=== PATIENT | male | born 1995 | race Caucasian/White ===

== ENCOUNTER 2024-12-29 12:42 | Emergency (ER) | payer MEDICAID, SELFPAY ==
[2024-12-29 13:55] VITALS: BP 134/62; PULSE 75; RESP 18; TEMP 36.8; O2SAT 100; BMI 24.0
--- NOTE | 2024-12-29 14:00 | XR_ITS ---
FINAL REPORT CLINICAL HISTORY: INJURY, punch wall 5 days ago. pain and swelling FINDINGS: LEFT HAND Three views demonstrate a displaced, angulated fracture of the mid fifth metacarpal. There is volar angulation of the distal fracture fragment. There is full width displacement. Prominent soft tissue swelling is noted. IMPRESSION: Fracture of the mid fifth metacarpal as above. Reviewed, Interpreted and Dictated by Gustavo Ching MD Transcribed by Niki Graves Authenticated and [facility]
[2024-12-29 15:00] VITALS: BP 123/84; PULSE 76; O2SAT 97
[2024-12-29] MEDS: LIDOCAINE 2% 20ML VIAL 20 ML IJ (15:06)
--- NOTE | 2024-12-29 15:20 | XR_ITS ---
FINAL REPORT TECHNIQUE: 4 views left hand CLINICAL HISTORY: post reduction COMPARISON: Earlier exam from 12/29/2024 FINDINGS: LEFT HAND: Since the prior exam of 12/29/2024 a splint has been placed over the left wrist and hand. There has been partial reduction of the fifth metacarpal fracture, with slight decrease in the angulation of the fracture fragments. However dorsal displacement of the distal fracture fragment remains present, with the displacement being a full shaft width. IMPRESSION: Partial reduction of the fifth metacarpal fracture, however, there remains dorsal displacement of the distal fracture fragment although the angulation has slightly decreased since the prior exam. Reviewed, Interpreted and Dictated by Gustavo Ching MD Transcribed by Belle Contreras Authenticated and [facility]
[2024-12-29 15:55] VITALS: BP 123/84; PULSE 76; RESP 12; TEMP 36.8; O2SAT 97
--- NOTE | 2024-12-29 15:56 | ED_ITS ---
Discharge Plan Disposition Patient Disposition: Home, Self-Care Condition: Good Prescriptions Prescriptions: New hydrocodone-acetaminophen 5-325 mg tablet 1 tab PO Q8H PRN (Reason: pain) Qty: 10 0RF No Action sertraline 50 mg tablet 50 mg PO DAILY Patient Comments: TAKE 1 TABLET EVERY DAY BY ORAL ROUTE IN THE MORNING FOR 30 DAYS, FOR MOOD. Referrals Follow up/Referrals: Papito Lucas DO [Staff Physician] - See instructions Provider,Referral, [Primary Care Provider] - See instructions Activity Restrictions/Add. Instructions Additional Instructions/Restrictions: You were evaluated in the emergency department today. You were diagnosed with a fracture of your left hand. Please keep the splint on, clean, and dry. Do not put weight on it your hand or carry anything with this hand. Follow-up closely with orthopedics for reassessment. We have provided you with information for Dr. Lucas. You will need to contact his office to schedule an appointment. I have prescribed Saffell for you to take as needed for severe pain. Try to give out with just Tylenol and ibuprofen, as Saffell is addicting and sedating. Do not drive or operate heavy machinery while taking narcotic pain medication. Rest, ice, and elevate your hand to help reduce pain and swelling. Sleep with it up on top of the pillow. Return to the emergency department for new or worsening symptoms, such as significant worsening of pain, new numbness or tingling, or other concerns. You received a nerve block today in the emergency department. It will take a while before your feeling in your hand returns completely to normal. Clinical Impressions Clinical Impression: Fracture of fifth metacarpal bone Qualifiers: Encounter type: initial encounter Fracture type: closed Metacarpal location: shaft Fracture alignment: displaced Laterality: left Qualified Code(s): S62.327A - Displaced fracture of shaft of fifth metacarpal bone, left hand, initial encounter for closed fracture Stand Alone Forms Stand Alone Forms: Work/School Release Instructions Patient Instructions: DI for a Hand Fracture, How to Take Care of Your Splint Print Language Print Language: Hungarian Discharge ED Provider: Lucia Khan General Adult HPI <Lucia Khan DO - Last Filed: 12/29/24 16:03> General Chief complaint: PAIN Stated complaint: L Hand Pain/Swelling Time Seen by Provider: 12/29/24 13:51 Mode of Arrival: Ambulatory Source of Information: Patient Description of Symptoms (Recalled from ER Triage Doc. by RN): PT REPORTS LEFT HAND PAIN AFTER PUNCHING A WALL ABOUT 5 DAYS AGO. SWEELING AND BRUISING NOTED History of Present Illness HPI narrative: This patient is a 29-year-old [id number] male who denies significant past medical history presenting to the emergency department for evaluation with concern for left hand injury. He notes that he was intoxicated and punched a wall, injuring his left hand. He states it was not bothering him much until last night, when he could not sleep secondary to pain. No other concerns or complaints, no numbness or tingling. Related Data Home Medications ?Medication ?Instructions ?Recorded ?Confirmed sertraline 50 mg tablet 50 mg PO DAILY 12/29/24 12/29/24 Previous Rx's ?Medication ?Instructions ?Recorded hydrocodone 5 mg-acetaminophen 325 1 tab PO Q8H PRN pain #10 tabs 12/29/24 mg tablet Allergies Allergy/AdvReac Type Severity Reaction Status Date / Time No Known Allergies Allergy Verified 12/29/24 13:59 [facility] <Lucia Khan DO - Last Filed: 12/29/24 16:03> [facility] Disclaimer: The information contained in this section may have been updated after the patient was seen, as this information can be updated by other users. Social History (Updated 12/29/24 @ 16:03 by Lucia Khan DO) Smoking Status: Never smoker alcohol intake: current current occupational status: employed and unemployed Travel in the last 8 weeks: None Have you lived/traveled outside [place] in past 30 days?: No Contact w/someone who lives/traveled outside US past 30 days?: No Exposure to someone with infectious disease in past 14 days?: No Do you have a fever (greater than 100.4 F or 38 C)?: No Have you tested positive for COVID-19: No Exposed to someone with COVID-19 in past 14 days?: No Do you have a sore throat?: No Do you have a cough?: No Do you have any weakness?: No Do you have any diarrhea?: No Are you experiencing any unusual bleeding?: No Do you have any muscle aches/pain?: No Do you have any abdominal pain?: No Are you experiencing loss of taste or smell?: No <Lucia Khan DO - Last Filed: 12/29/24 16:03> ROS Obtained: Yes All systems reviewed & no additional complaints except as documented Physical Exam <Lucia KhanDO - Last Filed: 12/29/24 16:03> General General appearance: alert and in no apparent distress Head Head exam: atraumatic and normocephalic Eye Eye exam: Present normal appearance, PERRL and EOMI ENT ENT exam: Present normal exam, normal oropharynx, mucous membranes moist and normal external ear exam Neck Neck exam: Present normal inspection, full ROM and trachea midline; Absent tenderness Chest Chest inspection: Present normal inspection and symmetric chest wall rise; Absent tenderness Respiratory Respiratory exam: Present normal lung sounds bilaterally; Absent respiratory distress, wheezes, stridor or accessory muscle use Cardiovascular Cardiovascular exam: Present regular rate and normal rhythm Abdominal Exam Abdominal exam: Present soft; Absent distention, tenderness or guarding Extremities Exam Extremities exam: Present tenderness, normal capillary refill, joint swelling and other (Swelling and tenderness to palpation to the ulnar aspect of the left hand. Neurovascularly intact distally) Back Exam Back exam: Present normal inspection and full ROM; Absent tenderness Neurological Exam Neurological exam: Present alert, oriented X3, CN II-XII intact and normal gait; Absent motor sensory deficit Psychiatric Psychiatric exam: Present normal affect and normal mood Skin Skin exam: Present warm and dry Medical Decision Making <Lucia SotoDO darya - Last Filed: 12/29/24 16:03> Medical Records Medical records reviewed: Yes I reviewed the patient's medical records. Screening: Per USPSTF and CDC recommendations, given the prevalence of disease in our region, it is our hospital?s policy to screen for HIV and viral Hepatitis for all patients aged 18 and over and those with ongoing risk factors. Timothy Inquiry Pt receiving controlled substance: Yes Timothy was queried for this patient: Yes Risks and benefits of using a controlled substance: were discussed with pt by me Vital Signs: 12/29/24 13:55 12/29/24 15:00 12/29/24 15:55 Temperature 98.2 F 98.2 F Temperature Source Oral Pulse Rate 76 76 Pulse Rate [Radial] 75 Respiratory Rate 18 12 Blood Pressure 123/84 123/84 Blood Pressure [Left Arm] 134/62 Blood Pressure Mean [Left Arm] 86 Blood Pressure Source [Left Arm] Automatic Cuff Blood Pressure Position [Left Arm] Sitting 02 Sat by Pulse Oximetry 100 97 Oxygen Delivery Method Room Air Room Air Lab Data Lab results reviewed: Yes I reviewed the patient's lab results. Orders (Tests/Meds): ED MEDICATIONS Discontinued Medications Generic Name Dose Route Start Last Admin Trade Name Karoline PRN Reason Stop Dose Admin Lidocaine HCl 20 ml 12/29/24 15:03 12/29/24 15:06 Lidocaine 2% 20ml Vial IJ 12/29/24 15:04 20 ml ONCE ONE Administration ORDERS Category Date Time Status Hand XR left minimum 3 views [XR hand LT min 3V] Stat Exams 12/29/24 14:00 Completed Hand XR left minimum 3 views [XR hand LT min 3V] Stat Exams 12/29/24 15:20 Taken POCUS Point of Care (ER Only) Stat Exams 12/29/24 15:08 Completed Medical Decision Narrative: In summary, this patient is a 29-year-old [id number] male presenting to the Emergency Department for evaluation of left hand injury. Differential diagnoses considered include but are not limited to fracture, contusion, strain/sprain, neurovascular injury. Ruling out the most morbid conditions drove assessment. On exam, the patient is well-appearing. He has tenderness palpation and swelling of the ulnar aspect of the left hand with no wounds, he is neurovascularly intact distally. Workup included x-rays of the left hand. I independently interpreted x-ray prior to the radiologist read and noted significant displaced fracture of the left fifth metacarpal. Please see their read for final interpretation. Informed consent was obtained from the patient and patient underwent ulnar nerve block and reduction of the fracture by Dr. Ramin Messer. Please see his note for further documentation. I performed splinting after reduction. Patient remained neurovascularly intact after splinting. He had improvement of alignment of the fracture on my independent interpretation of postreduction x-ray, and I feel that he is appropriate for discharge home with very close follow-up on an outpatient basis with orthopedics. He was given strict return precautions and instructions for splint care and nonweightbearing status. He was discharged after all questions were answered <Ramin Messer MD - Last Filed: 12/29/24 16:29> Vital Signs: 12/29/24 13:55 12/29/24 15:00 12/29/24 15:55 Temperature 98.2 F 98.2 F Temperature Source Oral Pulse Rate 76 76 Pulse Rate [Radial] 75 Respiratory Rate 18 12 Blood Pressure 123/84 123/84 Blood Pressure [Left Arm] 134/62 Blood Pressure Mean [Left Arm] 86 Blood Pressure Source [Left Arm] Automatic Cuff Blood Pressure Position [Left Arm] Sitting 02 Sat by Pulse Oximetry 100 97 Oxygen Delivery Method Room Air Room Air Orders (Tests/Meds): ED MEDICATIONS Discontinued Medications Generic Name Dose Route Start Last Admin Trade Name Karoline PRN Reason Stop Dose Admin Lidocaine HCl 20 ml 12/29/24 15:03 12/29/24 15:06 Lidocaine 2% 20ml Vial IJ 12/29/24 15:04 20 ml ONCE ONE Administration ORDERS Category Date Time Status Hand XR left minimum 3 views [XR hand LT min 3V] Stat Exams 12/29/24 14:00 Completed Hand XR left minimum 3 views [XR hand LT min 3V] Stat Exams 12/29/24 15:20 T fauzia POCUS Point of Care (ER Only) Stat Exams 12/29/24 15:08 Completed Medical Decision Narrative: In summary, this patient is a 29-year-old [id number] male presenting to the Emergency Department for evaluation of left hand injury. Differential diagnoses considered include but are not limited to fracture, contusion, strain/sprain, neurovascular injury. Ruling out the most morbid conditions drove assessment. On exam, the patient is well-appearing. He has tenderness palpation and swelling of the ulnar aspect of the left hand with no wounds, he is neurovascularly intact distally. Workup included x-rays of the left hand. I independently interpreted x-ray prior to the radiologist read and noted significant displaced fracture of the left fifth metacarpal. Please see their read for final interpretation. Informed consent was obtained from the patient and patient underwent ulnar nerve block and reduction of the fracture by Dr. Ramin Messer. Please see his note for further documentation. I performed splinting after reduction. Patient remained neurovascularly intact after splinting. He had improvement of alignment of the fracture on my independent interpretation of postreduction x-ray, and I feel that he is appropriate for discharge home with very close follow-up on an outpatient basis with orthopedics. He was given strict return precautions and instructions for splint care and nonweightbearing status. He was discharged after all questions were answered MD Ayde: I assisted with reduction and splinting of patient's left hand. I performed nerve block and formal reduction of patient's fifth metacarpal fracture. See procedure notes for further information. Procedures <Lucia Khan DO - Last Filed: 12/29/24 16:03> Orthopedic Splinting/Casting Injury #1: Side: left Upper Extremity Injury Location: hand Upper Extremity Immobilizer: ulnar gutter Additional Comments: Plaster splint applied by myself, tolerated well no complications Post Cast/Splinting Neuro Status: intact and no change Post Cast/Splinting Vasc Status: intact and no change <Ramin Messer MD - Last Filed: 12/29/24 16:29> Orthopedic Fracture Reduction Fracture #1: Time Out Performed: No Side: left Fracture Reduction Location: metacarpal Analgesia: nerve block Technique: direct manipulation and traction/counter-traction Post Reduction X-rays Demonstrate: acceptable reduction Post-reduction neuro exam: intact and no change Post-reduction vascular exam: intact and no change Splint Applied: Yes Patient Tolerated Procedure: well Limited Ultrasound Indication:: Ultrasound-guided nerve block Indication: -Pain control, fracture reduction Identified structures: -Left upper extremity ulnar vessels and nerves Location: -Left upper extremity distal forearm, ulnar side Direct visualization? -Yes Impression: Successful ultrasound-guided ulnar nerve block using lidocaine Images were saved to permanent archive The study was technically adequate CPT Codes: Ulnar nerve: 50312 Ultrasound guidance: 44624 This study was performed by me, and I personally interpreted all images/videos. Based on my clinical judgement, these images were adequate and did not necessitate further imaging Critical Care <Lucia Khan DO - Last Filed: 12/29/24 16:03> Critical Care Time Critical Care Time: No
== END 2024-12-29 15:56 | disposition home or self-care (01) ==
PROVIDERS: Emergency Provider Emergency Medicine
DX: M79.642 Pain in left hand (principal); S62.327A Displaced fracture of shaft of fifth metacarpal bone, left hand, initial encounter for closed fracture; W22.8XXA Striking against or struck by other objects, initial encounter; Y93.89 Activity, other specified; Y92.9 Unspecified place or not applicable
CPT/HCPCS: 26700; 73130; 99284

== ENCOUNTER 2024-12-31 11:17 | Outpatient (CLI) | payer MEDICAID, SELFPAY ==
--- NOTE | 2024-12-31 11:19 | XR_ITS ---
FINAL REPORT CLINICAL HISTORY: f/u hand fx COMPARISON: 12/29/2024 FINDINGS: LEFT HAND Three views demonstrate a transverse fracture of the proximal fifth metacarpal. There is slight increased displacement and angulation compared to the prior exam. Bony detail is partially obscured by plaster splint. Remaining structures are unremarkable. IMPRESSION: Further, mild displacement of the fifth metacarpal. Reviewed, Interpreted and Dictated by Deysi Sellers MD Transcribed by Niki Graves Authenticated and [facility]
== END 2024-12-31 23:59 | disposition home or self-care (01) ==
LOC: RAD 11:18
PROVIDERS: Visit Provider Physician Assistant Surgical
DX: M79.642 Pain in left hand (principal); S62.327A Displaced fracture of shaft of fifth metacarpal bone, left hand, initial encounter for closed fracture
CPT/HCPCS: 73130